=== PATIENT | male | born 1980 | race Caucasian/White ===

== ENCOUNTER 2018-08-09 10:19 | Emergency (ER) | payer SELFPAY ==
[2018-08-09] MEDS ORDERED: IPRATROPIUM/ALBUTEROL 0.5-2.5 MG/3 ML AMPUL NEB ONE (11:05)
[2018-08-09] MEDS ORDERED: PREDNISONE 20 MG TABLET PO ONE (11:05)
--- NOTE | 2018-08-09 11:52 | RADIOLOGY REPORT (SQ) ---
EXAM DESCRIPTION: CHEST 2 VIEWS COMPLETED DATE/TIME: 08/09/2018 11:38 am REASON FOR STUDY: cough, fever COMPARISON: None. EXAM PARAMETERS: NUMBER OF VIEWS: two views TECHNIQUE: Digital Frontal and Lateral radiographic views of the chest acquired. RADIATION DOSE: NA LIMITATIONS: none FINDINGS: LUNGS AND PLEURA: No opacities, masses or pneumothorax. No pleural effusion. MEDIASTINUM AND HILAR STRUCTURES: No masses or contour abnormalities. HEART AND VASCULAR STRUCTURES: Heart normal size. No evidence for failure. BONES: No acute findings. HARDWARE: None in the chest. OTHER: No other significant finding. IMPRESSION: NO ACUTE RADIOGRAPHIC FINDING IN THE CHEST. TECHNICAL DOCUMENTATION: JOB ID: [id number] [employer]- All Rights Reserved Reading location - IP/workstation name: [email or web address]
[2018-08-09 11:55] LABS: A TYPE INFLUENZA AG NEGATIVE (NEGATIVE); B INFLUENZA AG NEGATIVE (NEGATIVE)
--- NOTE | 2018-08-09 12:18 | ER Document Report ---
HPI - HPI Time Seen by Provider: 08/09/18 10:58 Pain Level: 3 Notes: Patient is a 38-year-old male who presents with productive cough and congestion over the last week. Patient reports mild body aches. Unsure if he has had fever although he has had some chills. Patient reports he is otherwise healthy and does not take medications daily. - CONSTITUTIONAL Constitutional: REPORTS: Fever, Chills - EENT EENT: REPORTS: Sore Throat - NEURO Neurology: REPORTS: Headache Past Medical History - General Information source: Patient - Social History Smoking Status: Current Every Day Smoker Chew tobacco use (# tins/day): No Frequency of alcohol use: None Drug Abuse: None Family History: Arthritis, CAD, CVA, DM, Hyperlipidemia, Hypertension, Other - Mother with diverticulitis, polyp remval, and Celiac disease Patient has suicidal ideation: No Patient has homicidal ideation: No Renal/ Medical History: Denies: Hx Peritoneal Dialysis Musculoskeletal Medical History: Reports Hx Arthritis, Reports Hx Musculoskeletal Deformity, Reports Hx Musculoskeletal Trauma Psychiatric Medical History: Reports: Hx Depression Traumatic Medical History: Reports: Hx Pneumothorax Past Surgical History: Reports: Hx Adenoidectomy, Hx Inguinal Hernia, Hx Myringotomy, Hx Nose Surgery, Hx Oral Surgery, Hx Tonsillectomy - Immunizations Immunizations up to date: Yes Hx Diphtheria, Pertussis, Tetanus Vaccination: Yes Vertical Provider Document - CONSTITUTIONAL Notes: PHYSICAL EXAMINATION: GENERAL: Well-appearing, well-nourished and in no acute distress. HEAD: Atraumatic, normocephalic. EYES: Pupils equal round extraocular movements intact, conjunctiva are normal. ENT: Nares patent with clear rhinorrhea. Mild white exudate noted on patient's tonsils and tongue. NECK: Normal range of motion LUNGS: No respiratory distress, lung sounds clear to auscultation bilaterally. Musculoskeletal: Normal range of motion NEUROLOGICAL: Normal speech, normal gait. PSYCH: Normal mood, normal affect. SKIN: Warm, Dry, normal turgor, no rashes or lesions noted. - INFECTION CONTROL TRAVEL OUTSIDE OF THE [place] IN LAST 30 DAYS: No Course - Re-evaluation Re-evalutation: Rapid strep and influenza are negative. Chest x-ray negative for any acute infiltrates. Patient has had increase in the amount of sputum as well as increased purulence. Patient has had fever intermittently over the last week. Will place patient on doxycycline for upper respiratory infection/bronchitis. Throat culture pending. - Vital Signs Vital signs: Temp Pulse Resp BP Pulse Ox 98.3 F 104 H 16 113/82 97 08/09/18 10:31 08/09/18 10:31 08/09/18 10:31 08/09/18 10:31 08/09/18 10:31 Discharge - Discharge Clinical Impression: Bronchitis Condition: Stable Disposition: HOME, SELF-CARE Additional Instructions: Bronchitis with Bronchospasm (Wheezing) You have bronchitis with bronchospasm (wheezing). Sometimes people develop wheezing with a chest cold. This occurs either because of an underlying tendency toward asthma or because the virus itself irritates the bronchial tubes. This irritation causes cough, shortness of breath, and wheezing. Emergency treatment of bronchospasm may include adrenaline shots or bronchodilator aerosol. You may feel lightheaded and have a rapid pulse for an hour or two. Rest and get plenty of fluids. At home, we'll treat you with a bronchodilator inhaler. Corticosteroids may be required for some patients. Until you recover, avoid chemical fumes, dusts, pollens, and exercising in very cold or dry air. If you smoke, stop now! Most cases of bronchitis get better without antibiotics. We prescribe antibiotics when we believe bacteria are damaging your airways, or if there's high risk the bronchitis will worsen into pneumonia. Increase your fluid intake. A cool mist humidifier may make your lungs more comfortable. An expectorant (cough medicine that loosens phlegm) can help. Repeated episodes of bronchitis and bronchospasm may result in lung damage -- for example, chronic bronchitis, recurrent pneumonias, or emphysema. If you develop a fever, increased wheezing, chest pain, or severe shortness of breath, you should contact the doctor immediately. Prescriptions: Doxycycline Hyclate 100 mg PO BID #14 capsule Fluticasone Propionate [Flonase Nasal [place] 50 Mcg/[place] 16 gm] 2 sprays NASL Q12 #1 inhaler Prednisone [Deltasone 20 mg Tablet] 3 tab PO DAILY 5 Days #15 tablet
[2018-08-09 12:32] VITALS: BP 140/98
== END 2018-08-09 12:33 | disposition home or self-care (01) ==
LOC: ER 10:19
DX: J40 Bronchitis, not specified as acute or chronic (principal); R05 Cough; J02.9 Acute pharyngitis, unspecified; J34.89 Other specified disorders of nose and nasal sinuses; R51 Headache; F17.200 Nicotine dependence, unspecified, uncomplicated
CPT/HCPCS: 94640; 99283; 87070; 87880; 87804; 71046; J7512; J7620

== ENCOUNTER 2018-11-26 19:54 | Emergency (ER) | payer SELFPAY ==
[2018-11-26] MEDS ORDERED: ONDANSETRON 4 MG TAB.RAPDIS PO PRN (20:54)
[2018-11-26] MEDS ORDERED: IBUPROFEN 800 MG TABLET PO PRN (20:54)
[2018-11-26] MEDS ORDERED: PROMETHAZINE HCL 25 MG TABLET PO PRN (20:54)
[2018-11-26] MEDS ORDERED: NICOTINE 21 MG/24 HR PATCH.TD24 TD ONE (20:54)
--- NOTE | 2018-11-26 20:58 | ER Document Report ---
Addendum entered and electronically signed by TEDDY SALGADO DO 11/28/18 11:30: Discharge - Discharge Clinical Impression: Heroin abuse, Polysubstance abuse, Suicidal ideation, Alcohol abuse, Methadone misuse, Methamphetamine abuse, Cannabis abuse Depression Qualifiers: Depression Type: unspecified Qualified Code(s): F32.9 - Major depressive disorder, single episode, unspecified Condition: Stable Disposition: HOME, SELF-CARE Additional Instructions: You have been evaluated by both medical and behavioral health providers while in the emergency department. You have been cleared from both acute medical and psychiatric services. You have current and history of using multiple substances. Substance abuse, especially opiates, as well as the use of both uppers (methamphetamines) and downers (opiates such as methadone) can cause/increase/exacerbate depressive symptoms. It is felt the best course of treatment is voluntary detoxification from multiple substances where that is the focus and mental health treatment is secondary. Then after detoxification you can choose to do halfway recovery at a place like [facility] (via [facility]) in [place], [place] or Substance Abuse Intensive Outpatient Program (SAIOP) at [facility] located in [facility]. Both options will allow for continued professional support that will address both mental health and substance abuse. NARCOTIC / OPIOD ABUSE: (Methadone) Narcotics and opiods are pain-relieving drugs that are often abused. They are addicting. Narcotics cause euphoria, but it often takes increasing amounts to "feel good" and avoid withdrawal symptoms. Overdose of narcotics causes small pupils, coma, and decreased breathing. It's a common cause of . Purity of street narcotics is unpredictable. Injection of narcotics is risky for abscesses, endocarditis (heart infection), pneumonia, and AIDS. Withdrawal from narcotics causes goose bumps, watery mouth, sweating, nasal congestion, muscle aches, abdominal cramps, vomiting, and diarrhea. There's often restlessness and confusion. Treatment programs are available, but you must make the decision to quit. Medication (such as clonidine) can be prescribed to control the symptoms of withdrawal. AMPHETAMINE / METHAMPHETAMINE ABUSE: Amphetamines are addicting stimulants. Amphetamines overstimulate the nervous system and give a false feeling of power and mastery. These drugs may be obtained as prescription pills for weight loss, narcolepsy, or attention-deficit disorder. More often they're bought as an illegal street drug, methamphetamine (crank, crystal, speed). Using amphetamines repeatedly can lead to serious medical problems includi ng malnutrition, severe depression, and paranoia. It can take increasing amounts to feel good. Eventually, there will be a "burn out." When you go off amphetamines there is a period of depression that may last for weeks or even months. High doses of amphetamines can cause seizures, confusion, hallucinations, delusions, high blood pressure, muscle damage, heart damage, or sudden . Many times these deadly complications occur even with "normal" doses. Injection of amphetamines is risky for developing abscesses, endocarditis (heart infection), pneumonia, and AIDS. Withdrawal from amphetamines often causes anxiety, depression, and drug cravings. Some users become paranoid and psychotic. There may be cramps, nausea, and vomiting. Many treatment programs are available, but you must make the decision to quit. Medication can be prescribed to control the symptoms of amphetamine toxicity (beta blockers or benzodiazepines). Withdrawal symptoms may require tranquilizers. DEPRESSION: Your evaluation reveals that you have mental depression. While symptoms may be vague, they often include disturbance of sleep, fatigue, loss of appetite, and general loss of interest in life. While depression may be a side effect of drugs, or a reaction to a major change in your life, many cases have no known cause. If depression is acute, and related to a major loss in your life, you can expect it to clear completely with time. If you have been depressed a long time, are prone to repeated bouts of depression or low mood, or have been thinking of suicide, get help. Depression can be treated with anti-depressant medication and counselling. Long-term depression will often take a few weeks to clear, even with appropriate medication. Follow-up care is important. SUICIDAL IDEATION: Suicidal ideation is a common medical term for thoughts about suicide, which may be as detailed as a formulated plan, without the suicidal act itself. Although most people who undergo suicidal ideation do not commit suicide, some go on to make suicide attempts. The range of suicidal ideation varies greatly from fleeting to detailed planning, role playing, and unsuccessful attempts. While thoughts about suicide are common, most people do not carry out seri ous actions to commit suicide. Based upon your evaluation and discussion with you, we do not believe you are currently at risk to act upon your thoughts of suicide. You have agreed to return to the Emergency Department, at any time, if you feel inclined to act upon your suicidal thoughts. FOLLOW-UP CARE: You have been instructed to call [facility] ([facility]) at discharge, they will meet you in the Emergencu Department (ED) lobby, they will assist with voluntary detoxification placement. You have been provided the outpatient mental health resource sheet which highlighted [facility] contact information. You have been provided with prescriptions for Effexor 37.5MG daily for depression and to curb cravings for substances, as well as Buspar 10MG at night for anxiety/depression/sleep. You should take these as directed if unable to get a dotification bed immediately. If you experience worsening or a significant change in your symptoms, notify the physician immediately, utilize mobile crisis or return to the Emergency Department at any time for re-evaluation. Prescriptions: Buspirone HCl [Buspar 10 mg Tablet] 10 mg PO QHS #14 tablet Venlafaxine HCl ER [Effexor Xr 37.5 mg Cap.sr] 37.5 mg PO DAILY #14 cap.[id number] Referrals: [facility] [Outside] - 11/28/18 12:00 pm Addendum entered and electronically signed by BAIRON TYSON LPC 11/28/18 11:28: Discharge - Discharge Clinical Impression: Heroin abuse, Polysubstance abuse, Suicidal ideation, Alcohol abuse, Methadone misuse, Methamphetamine abuse, Cannabis abuse, Depression Condition: Stable Disposition: HOME, SELF-CARE Additional Instructions: You have been evaluated by both medical and behavioral health providers while in the emergency department. You have been cleared from both acute medical and psychiatric services. You have current and history of using multiple substances. Substance abuse, especially opiates, as well as the use of both uppers (methamphetamines) and downers (opiates such as methadone) can cause/increase/exacerbate depressive symptoms. It is felt the best course of treatment is voluntary detoxification from multiple substances where that is the focus and mental health treatment is secondary. Then after detoxification you can choose to do long chain beamer recovery at a place like [facility] (via [facility]) in [place], [place] or Substance Abuse Intensive Outpatient Program (SAIOP) at [facility] located in [facility]. Both options will allow for continued professional support that will address both mental health and substance abuse. NARCOTIC / OPIOD ABUSE: (Methadone) Narcotics and opiods are pain-relieving drugs that are often abused. They are addicting. Narcotics cause euphoria, but it often takes increasing amounts to "feel good" and avoid withdrawal symptoms. Overdose of narcotics causes small pupils, coma, and decreased breathing. It's a common cause of . Purity of street narcotics is unpredictable. Injection of narcotics is risky for abscesses, endocarditis (heart infection), pneumonia, and AIDS. Withdrawal from narcotics causes goose bumps, watery mouth, sweating, nasal congestion, muscle aches, abdominal cramps, vomiting, and diarrhea. There's often restlessness and confusion. Treatment programs are available, but you must make the decision to quit. Medication (such as clonidine) can be prescribed to control the symptoms of withdrawal. AMPHETAMINE / METHAMPHETAMINE ABUSE: Amphetamines are addicting stimulants. Amphetamines overstimulate the nervous system and give a false feeling of power and mastery. These drugs may be obtained as prescription pills for weight loss, narcolepsy, or attention- deficit disorder. More often they're bought as an illegal street drug, methamphetamine (crank, crystal, speed). Using amphetamines repeatedly can lead to serious medical problems including malnutrition, severe depression, and paranoia. It can take increasing amounts to feel good. Eventually, there will be a "burn out." When you go off amphetamines there is a period of depression that may last for weeks or even months. High doses of amphetamines can cause seizures, confusion, hallucinations, delusions, high blood pressure, muscle damage, heart damage, or sudden . Many times these deadly complications occur even with "normal" doses. Injection of amphetamines is risky for developing abscesses, endocarditis (heart infection), pneumonia, and AIDS. Withdrawal from amphetamines often causes anxiety, depression, and drug cravings. Some users become paranoid and psychotic. There may be cramps, nausea, and vomiting. Many treatment programs are available, but you must make the decision to quit. Medication can be prescribed to control the symptoms of amphetamine toxicity (beta blockers or benzodiazepines). Withdrawal symptoms may require tranquilizers. DEPRESSION: Your evaluation reveals that you have mental depression. While symptoms may be vague, they often include disturbance of sleep, fatigue, loss of appetite, and general loss of interest in life. While depression may be a side effect of drugs, or a reaction to a major change in your life, many cases have no known cause. If depression is acute, and related to a major loss in your life, you can expect it to clear completely with time. If you have been depressed a long time, are prone to repeated bouts of depression or low mood, or have been thinking of suicide, get help. Depression can be treated with anti-depressant medication and counselling. Long-term depression will often take a few weeks to clear, even with appropriate medication. Follow-up care is important. SUICIDAL IDEATION: Suicidal ideation is a common medical term for thoughts about suicide, which may be as detailed as a formulated plan, without the suicidal act itself. Although most people who undergo suicidal ideation do not commit suicide, some go on to make suicide attempts. The range of suicidal ideation varies greatly from fleeting to detailed planning, role playing, and unsuccessful attempts. While thoughts about suicide are common, most people do not carry out serious actions to commit suicide. Based upon your evaluation and discussion with you, we do not believe you are currently at risk to act upon your thoughts of suicide. You have agreed to return to the Emergency Department, at any time, if you feel inclined to act upon your suicidal thoughts. FOLLOW-UP CARE: You have been instructed to call [facility] ([facility]) at discharge, they will meet you in the Emergencu Department (ED) lobby, they will assist with voluntary detoxification placement. You have been provided the outpatient mental health resource sheet which highlighted [facility] contact information. You have been provided with prescriptions for Effexor 37.5MG daily for depression and to curb cravings for substances, as well as Buspar 10MG at night for anxiety/depression/sleep. You should take these as directed if unable to get a dotification bed immediately. If you experience worsening or a significant change in your symptoms, notify the physician immediately, utilize mobile crisis or return to the Emergency Department at any time for re-evaluation. Referrals: [facility] [Outside] - 11/28/18 12:00 pm Addendum entered and electronically signed by BAIRON TYSON LPC 11/28/18 11:21: Discharge - Discharge Clinical Impression: Heroin abuse, Polysubstance abuse, Suicidal ideation, Alcohol abuse, Methadone misuse, Methamphetamine abuse, Cannabis abuse, Depression Condition: Stable Disposition: HOME, SELF-CARE Additional Instructions: NARCOTIC / OPIOD ABUSE: (Methadone) Narcotics and opiods are pain-relieving drugs that are often abused. They are addicting. Narcotics cause euphoria, but it often takes increasing amounts to "feel good" and avoid withdrawal symptoms. Overdose of narcotics causes small pupils, coma, and decreased breathing. It's a common cause of . Purity of street narcotics is unpredictable. Injection of narcotics is risky for abscesses, endocarditis (heart infection), pneumonia, and AIDS. Withdrawal from narcotics causes goose bumps, watery mouth, sweating, nasal congestion, muscle aches, abdominal cramps, vomiting, and diarrhea. There's often restlessness and confusion. Treatment programs are available, but you must make the decision to quit. Medication (such as clonidine) can be prescribed to control the symptoms of withdrawal. AMPHETAMINE / METHAMPHETAMINE ABUSE: Amphetamines are addicting stimulants. Amphetamines overstimulate the nervous system and give a false feeling of power and mastery. These drugs may be obtained as prescription pills for weight loss, narcolepsy, or attention- deficit disorder. More often they're bought as an illegal street drug, methamphetamine (crank, crystal, speed). Using amphetamines repeatedly can lead to serious medical problems including malnutrition, severe depression, and paranoia. It can take increasing amounts to feel good. Eventually, there will be a "burn out." When you go off amphetamines there is a period of depression that may last for weeks or even months. High doses of amphetamines can cause seizures, confusion, hallucinations, delusions, high blood pressure, muscle damage, heart damage, or sudden . Many times these deadly complications occur even with "normal" doses. Injection of amphetamines is risky for developing abscesses, endocarditis (heart infection), pneumonia, and AIDS. Withdrawal from amphetamines often causes anxiety, depression, and drug cravings. Some users become paranoid and psychotic. There may be cramps, nausea, and vomiting. Many treatment programs are available, but you must make the decision to quit. Medication can be prescribed to control the symptoms of amphetamine toxicity (beta blockers or benzodiazepines). Withdrawal symptoms may require tranquilizers. DEPRESSION: Your evaluation reveals that you have mental depression. While symptoms may be vague, they often include disturbance of sleep, fatigue, loss of appetite, and general loss of interest in life. While depression may be a side effect of drugs, or a reaction to a major change in your life, many cases have no known cause. If depression is acute, and related to a major loss in your life, you can expect it to clear completely with time. If you have been depressed a long time, are prone to repeated bouts of depression or low mood, or have been thi nking of suicide, get help. Depression can be treated with anti-depressant medication and counselling. Long-term depression will often take a few weeks to clear, even with appropriate medication. Follow-up care is important. SUICIDAL IDEATION: Suicidal ideation is a common medical term for thoughts about suicide, which may be as detailed as a formulated plan, without the suicidal act itself. Although most people who undergo suicidal ideation do not commit suicide, some go on to make suicide attempts. The range of suicidal ideation varies greatly from fleeting to detailed planning, role playing, and unsuccessful attempts. While thoughts about suicide are common, most people do not carry out serious actions to commit suicide. Based upon your evaluation and discussion with you, we do not believe you are currently at risk to act upon your thoughts of suicide. You have agreed to return to the Emergency Department, at any time, if you feel inclined to act upon your suicidal thoughts. FOLLOW-UP CARE: You have been instructed to call [facility] ([facility]) at discharge, they will meet you in the Emergencu Department (ED) lobby, they will assist with voluntary detoxification placement. You have been provided the outpatient mental health resource sheet which highlighted [facility] contact information. If you experience worsening or a significant change in your symptoms, notify the physician immediately, utilize mobile crisis or return to the Emergency Department at any time for re-evaluation. Referrals: [facility] [Outside] - 11/28/18 12:00 pm Original Note: ED General - General Chief Complaint: Suicidal Ideation Stated Complaint: PSYCH EVAL Time Seen by Provider: 11/26/18 20:33 Notes: 38-year-old male presents emergency department complaining of suicidal ideation. States that he is tried several times over the past several days to overdose on heroin and methamphetamine but has not yet succeeded in dying. Came to the emergency department asking to be involuntarily committed so that he cannot leave and try again. Patient has an extensive past history of hospitalizations for suicidal ideation and suicide attempts. Not currently undergoing therapy or medication treatment with any psychiatrist or psychologist. Admits to using multiple recreational drugs and states he has a history of withdrawal from both heroin and alcohol. TRAVEL OUTSIDE OF THE [place] IN LAST 30 DAYS: No - Related Data Allergies/Adverse Reactions: Penicillins Allergy (Verified 08/09/18 10:22) Past Medical History - General Information source: Patient - Social History Smoking Status: Current Every Day Smoker Frequency of alcohol use: Heavy Drug Abuse: Heroin, Marijuana, Methamphetamine, Other - "Anything else I can get my hands on" Family History: Arthritis, CAD, CVA, DM, Hyperlipidemia, Hypertension, Other - Mother with diverticulitis, polyp remval, and Celiac disease Patient has suicidal ideation: Yes Patient has homicidal ideation: No Renal/ Medical History: Denies: Hx Peritoneal Dialysis Musculoskeletal Medical History: Reports Hx Arthritis, Reports Hx Musculoskeletal Deformity, Reports Hx Musculoskeletal Trauma Psychiatric Medical History: Reports: Hx Depression Traumatic Medical History: Reports: Hx Pneumothorax Past Surgical History: Reports: Hx Adenoidectomy, Hx Inguinal Hernia, Hx Myr ingotomy, Hx Nose Surgery, Hx Oral Surgery, Hx Tonsillectomy - Immunizations Immunizations up to date: Yes Hx Diphtheria, Pertussis, Tetanus Vaccination: Yes Review of Systems - Review of Systems Constitutional: No symptoms reported Gastrointestinal: Abdominal pain - Intermittent abdominal cramping.. denies: Diarrhea, Nausea, Vomiting Neurological/Psychological: See HPI -: Yes All other systems reviewed and negative Physical Exam - Vital signs Vitals: Temp Pulse Resp BP Pulse Ox 98.1 F 104 H 20 121/74 97 11/26/18 20:02 11/26/18 20:02 11/26/18 20:02 11/26/18 20:02 11/26/18 20:02 - Notes Notes: GENERAL: Alert, interacts well. No acute distress. HEAD: Normocephalic, atraumatic EYES: Pupils equal, round and reactive to light, extraocular movements intact. ENT: Oral mucosa moist, tongue midline. NECK: Full range of motion, supple, trachea midline. LUNGS: Clear to auscultation bilaterally, no wheezes, rales or rhonchi, no respiratory distress. HEART: Regular rate and rhythm, no murmurs, gallops, rubs. ABDOMEN: Soft, nontender, nondistended, bowel sounds present in all 4 quadrants. EXTREMITIES: Moves all 4 extremities spontaneously, no edema, radial and dorsalis pedis pulses 2/4 bilaterally. No cyanosis. NEUROLOGICAL: Alert and oriented x3, normal speech, biceps and patellar DTRs 2+ bilaterally. PSYCH: Normal mood, normal affect. SKIN: Warm, Dry, normal turgor, track joseph on his arms and legs, no signs of active infection, occasional ecchymoses noted over veins, no fluctuance, no evidence of abscess.. Course - Re-evaluation Re-evalutation: 11/27/18 03:47 CBC unremarkable, CMP grossly unremarkable, only slightly elevated BUN, AST ALT alk phos normal, urinalysis shows trace ketones otherwise unremarkable, patient drinking without difficulty, salicylates are 4.3, acetaminophen is undetectable, urine drug screen shows methadone and marijuana, alcohol level is undetectable, EKG is nonischemic. Patient will have see was protocol performed on a regular basis, patient is Akash had medication ordered on a as needed basis for signs of narcotic withdrawal including ibuprofen, Zofran, Bentyl. Patient has been given a nicotine patch. Patient has been placed on 24-hour hold papers and will be seen by psychology in the morning. Patient did already have some ta chycardia and hypertension so he was started on clonidine including a patch. Patient has been doing well since then. - Vital Signs Vital signs: Temp Pulse Resp BP Pulse Ox 98.1 F 90 20 116/62 100 11/26/18 20:02 11/27/18 00:03 11/27/18 00:03 11/27/18 00:03 11/27/18 00:03 - Laboratory Result Diagrams: 11/26/18 21:06 11/26/18 21:06 Laboratory results interpreted by me: 11/26/18 11/26/18 21:06 21:06 BUN 23 H Total Protein 6.2 L Urine Protein 30 H Urine Ketones TRACE H Acetaminophen < 10 L - EKG Interpretation by Me Additional EKG results interpreted by me: 11/27/18 03:48 EKG shows sinus rhythm at a rate of 93, normal axis, normal intervals, no ST segment elevations or depressions, no T wave inversions per my interpretation. Discharge - Discharge Clinical Impression: Heroin abuse, Polysubstance abuse, Suicidal ideation, Alcohol abuse Condition: Stable Disposition: PSYCH HOSP/UNIT
[2018-11-26 21:22] LABS: ABSOLUTE EOSINOPHILS # (AUTO) 0.1 10^3/uL (0.0-0.6); ABSOLUTE LYMPHOCYTES (AUTO) 2.2 10^3/uL (0.5-4.7); ABSOLUTE MONOCYTES (AUTO) 0.6 10^3/uL (0.1-1.4); ABSOLUTE NEUT (AUTO) 3.7 10^3/uL (1.7-8.2); BASOPHILS % (AUTO) 0.4 % (0-2); EOSINOPHILS % (AUTO) 1.6 % (0-6); HEMATOCRIT 44.4 % (37.9-51.0); LYMPHOCYTES % (AUTO) 33.9 % (13-45); MEAN CORPUSCULAR HEMOGLOBIN 29.1 pg (27.0-33.4); MEAN CORPUSCULAR HGB CONC 33.7 g/dL (32.0-36.0); MEAN CORPUSCULAR VOLUME 86 fl (80-97); MONOCYTES % (AUTO) 8.4 % (3-13); PLATELET COUNT 239 10^3/uL (150-450); RED BLOOD COUNT 5.14 10^6/uL (4.35-5.55); RED CELL DISTRIBUTION WIDTH 13.7 % (11.5-14.0); SEGMENTED NEUTROPHILS % (AUTO) 55.7 % (42-78); TOTAL CELLS COUNTED % (AUTO) 100 %; WHITE BLOOD COUNT 6.6 10^3/uL (4.0-10.5)
[2018-11-26] MEDS: DICYCLOMINE HCL 20 MG TABLET PO PRN (21:32)
[2018-11-26 21:41] LABS: APPEARANCE,URINE CLOUDY; BILIRUBIN,URINE NEGATIVE (NEGATIVE); COLOR,URINE DARK YELLOW; GLUCOSE, URINE NEGATIVE (NEGATIVE); KETONES,URINE TRACE mg/dL (NEGATIVE); LEUKOCYTE ESTERASE,URINE NEGATIVE (NEGATIVE); NITRITE,URINE NEGATIVE (NEGATIVE); PROTEIN,URINE 30 mg/dL (NEGATIVE); URINE SPECIFIC GRAVITY 1.031; UROBILINOGEN,URINE NEGATIVE mg/dL (<2.0)
[2018-11-26 21:47] LABS: ACETAMINOPHEN < 10 ug/mL (10-30); ALANINE AMINOTRANSFERASE 36 U/L (21-72); ALBUMIN 3.8 g/dL (3.5-5.0); ALCOHOL < 10 mg/dL (NONE DETECTED); ALKALINE PHOSPHATASE 57 U/L (38-126); ANION GAP 9 (5-19); ASPARTATE AMINO TRANSFERASE 25 U/L (17-59); BILIRUBIN,DIRECT 0.2 mg/dL (0.0-0.4); BILIRUBIN,TOTAL 0.4 mg/dL (0.2-1.3); BLOOD UREA NITROGEN 23 mg/dL (7-20); CARBON DIOXIDE 28 mmol/L (22-30); CHLORIDE 101 mmol/L (98-107); GLUCOSE 96 mg/dL (75-110); POTASSIUM 3.9 mmol/L (3.6-5.0); SALICYLATE 4.3 mg/dL (2.0-20.0); SODIUM 138.4 mmol/L (137-145); TOTAL PROTEIN 6.2 g/dL (6.3-8.2)
[2018-11-26 21:55] LABS: URINE BARBITURATES SCREEN NEGATIVE; URINE BENZODIAZEPINES SCREEN NEGATIVE; URINE COCAINE SCREEN NEGATIVE; URINE MARIJUANA (THC) SCREEN UNCONFIRMED POSITIVE; URINE PHENCYCLIDINE SCREEN NEGATIVE
[2018-11-26 22:11] LABS: URINE METHADONE SCREEN UNCONFIRMED POSITIVE
[2018-11-26] MEDS ORDERED: CLONIDINE 0.1 MG/24 HR PATCH.TDWK TD ONE (23:55)
[2018-11-26] MEDS ORDERED: CLONIDINE HCL 0.1 MG TABLET PO ONE (23:55)
--- NOTE | 2018-11-27 09:12 | ER Document Report ---
Doctor's Note Notes: 11/27/18 09:12 HPI from 11/26/2018 :38-year-old male presents emergency department complaining of suicidal ideation. States that he is tried several times over the past several days to overdose on heroin and methamphetamine but has not yet succeeded in dying. Came to the emergency department asking to be involuntarily committed so that he cannot leave and try again. Patient has an extensive past history of hospitalizations for suicidal ideation and suicide attempts. Not currently undergoing therapy or medication treatment with any psychiatrist or psychologist. Admits to using multiple recreational drugs and states he has a history of withdrawal from both heroin and alcohol. As the rounding physician this AM, I assessed the patient's labs, vitals, and records. No concerning findings this morning. Patient denies any acute complaints. Patient [facility]. 11/27/18 20:26 We did attempt to admit the patient to the [facility] which is a rehabilitation facility but they admission due to concerns of severe withdrawal symptoms Patient remains adamant that he will kill himself if discharged. [facility] has been working on disposition for this patient for several hours. We will continue to monitor. PHYSICAL EXAMINATION: GENERAL: Well-appearing, well-nourished and in no acute distress. HEAD: Atraumatic, normocephalic. EYES: Pupils equal round extraocular movements intact, conjunctiva are normal. ENT: Nares patent NECK: Normal range of motion LUNGS: No respiratory distress Musculoskeletal: Normal range of motion NEUROLOGICAL: Normal speech, normal gait. PSYCH: Admits to suicidal ideation. SKIN: Warm, Dry, normal turgor, no rashes or lesions noted.
[2018-11-27] MEDS: DICYCLOMINE HCL 20 MG TABLET PO PRN (11:07)
--- NOTE | 2018-11-27 11:12 | EKG REPORT ---
SEVERITY:- NORMAL ECG - SINUS RHYTHM : Confirmed by: Luther Jorgensen 27-Nov-2018 11:11:35
--- NOTE | 2018-11-28 10:27 | PSYCHOLOGICAL NOTE ---
Psych Note - Psych Note Date seen by psych provider: 11/28/18 Time seen by psych provider: 08:08 - Re evaluation from [id number]. Spoke to mother via telephone. Cooridnated [facility] linkage with Meggan at call center and then Tushar who came to conduct assessment with patient in ED [facility]. Psych Note: Reason for Consult: 1st Re Evaluation, 24 Hour IVC Petition from 11/26/18 so has , been trying to OD on Heroin and Meth for past several days, history polysubstance and Depression Contact Permissions: Mother Merlyn/listed as EC, number listed on face sheet is not correct, patient had correct number Patient is a 38 year old male who is in the ED on an overnight MH hold (was on a 24 Hour IVC Petition 11/26/18) for trying to OD on Heoin and Meth the past several days with history of Polysubstance use and Depression. He stated "doing a little better, I feel a little better" when asked how he was feeling. I stated "I want to go someplace." He denied being prescribed Methadone. He admitted to previous and inpatient treatment. He identified he had been to the [facility] previously. He reported last year he was hospitalized at [facility] and has been to [facility] (detox part only) in the past. He acknowledged he "shot up 3-4 times in a row, had other plans like walking out in front of a car, didn't matter, anything, I have to get help, seems the easiest way to go would be to OD" when asked about thoughts to hurt/harm/kill self. When asked about current SI he said "if y'all let me out of here yeah." He noted depression and said he is not currently on medication, should be and was previously on Zoloft, Prozac, Citalopram, Strattera. He identified "when I am not on an antidepressant that is when I use drugs." He stated his mother and roommate reside in [facility] [facility] and commented "I can't go back there, [address], there is too much access, I have no place to go." He was made aware that just because he has no place to go does not mean he should go inpatient psych and he said "lady I have no place to go, if I am on the streets I will use, I want help with the substance use but I also have depression." UDS was positive for Methadone, Methamphetamine and Cannabis. Patient was alert and oriented to self, person, place, time and situation. Mood was depressed with irritable affect (not could be from coming down and withdrawal). He endorsed SI by saying "if ya'll let me out of here year, I want help, I have no place to go." He denied HI. He did not appear to be responding to internal stimuli as evidenced by fair eye contact, answering questions appropriately when addressed, staying on topic and carrying on dialogue conversation. Thought processes were linear and organized, as well as forward due to wanting help. Conversational speech was within normal limits for rate, tone and prosody. Intellectual abilities are estimated to be average. Insight, judgment and impulse control were fair as evidenced by recognizing he has a problem and wanting help. Also he was able to contact mother and roommate to coordinate plan. Chart review revealed patient was seen August 2015 by [facility] for OD of Tramadol and Prozac, he had said he was depressed about life in general, sometimes didn't want to get out of bed, had 27 jobs in his 35 years of life and had no life successes. He also noted then an OD in 2009 which resulted in 21 day detox and he remained sober for a year after. He had admitted to a long history of drug use, anything he could get his hands on, got hooked on pain medication (Percocet, Oxycontin). Mother had provided the following information at that time: patient has a history of aggression, drug use, legal problems (at that time was on Probation for viewing child pornography on the internet), has seen MH Provider Dr. Hutchins who considered Mild ASD and ADHD, patient had been morn 3 months premature. She stated that prior to the Aug 2015 visit he had been spacey and having rages for 2 weeks and she found him paranoid/could hardly speak. Attempted to call patient's mother using face sheet information but not accurate number. Patient called his mother from [facility] station and passed the phone to this clinician. She stated she does reside in [facility] but he was not able to return. She noted "this has been going on for years, he is now shooting up and has been saying he is going to kill himself." She stated they have found things like railroad car checker knives. She stated he needs treatment and it does start with the addiction. She stated the only other option is patient's roommate if he will allow patient there for a couple days. She was made aware of plan of care (link [facility] to [facility] at discharge so they can assist with voluntary detox placement which could take a couple days). Patient called roommate, Graham, from nurses station. This clinician present for call. Roommate made aware of plan of care by patient and agreed to allow him to stay a couple days while waiting on detox bed availability. This clinician called the [facility] call center number (spoke to Meggan) to initiate the linkage and then passed phone over to patient. This was all done at the nurses station. Clinician present while patient provided call center information. Call back number was [facility] office since patient did not have a cell phone. Meggan called to verify the number. At 1232 Tushar with [facility] called saying he was in [place] and would be to the [facility] ED in 20 minutes. Went to [facility] where patient agreed to wait, he was still there and informed him of time frame. He used wall phone in [facility] to call 2 people (family member, mother) about a ride to roommates house since he was made aware [facility] could not since he is the only worker on. Patient told mother the [facility] worker was on the way and remained on the phone with her for some time. She agreed to provide transportation when this clinician was still present with patient. At 1441 Tushar came to the [facility] Office after meeting with patient. Diagnosis: Polysubstance Use 304.00 (F11.20) Opioid Use Disorder, Severe 304.40 (F15.20) Methamphetamine Use Disorder, Severe 304.30 (F12.20) Cannabis Use Disorder, Severe 311 (F32.9) Unspecified Depressive Disorder Medication recommendations made by the psychiatric medical provider, Dr. Aris MD., includes: Provide 5 day prescription (in the event patient does not get detox bed immediat catrachito due to none available) Add Effexor 37.5MG daily for depression/to curb cravings/increase energy Add Buspar 10MG at night for anxiety/calming effect/depression/sleep Impression/Plan: Patient is cleared from acute psychiatric services. When asked about current SI he said "if ya'll let me out of here yeah," and had said he feels a little better today but wants to go someplace. He denied HI and no observed psychosis. He also said he has no place to go (mother resides in [facility], said he cannot go back there, commented there is access to so much there). He denied being prescribed methadone. He admitted to using substances and feeling depressed. He contacted his mother and roommate at nurses station prior to discharge. He allowed this clinician to speak with mother and made her aware of plan of care. He contacted his roommate Graham who agreed to let him stay a day or two in case a detox bed was not available right away. Patient linked directly to [facility], this clinician assisted by making initial call to [facility] (Meggan at call center) from nurses station and then passed phone over to patient, they will meet him in ED lobby and they can assist with voluntary detox place ment (Tushar met with patient). Provided patient with the outpatient MH resource sheet which highlighted [facility] for voluntary detox/crisis/talk therapy/linkage to other supports/services, highlighted [facility] for SAIOP and MH after detox and documented [facility] via [employer] (included contact number) for reimbursement specialist recovery. Consulted with Dr. Dunaway regarding the management and care of patient. ED Physician in agreement with recommendations.
--- NOTE | 2018-11-28 11:29 | ER Document Report ---
Doctor's Note Notes: 11/28/18 11:28 11/27/18 09:12 HPI from 11/26/2018 :38-year-old male presents emergency department complaining of suicidal ideation. States that he is tried several times over the past several days to overdose on heroin and methamphetamine but has not yet succeeded in dying. Came to the emergency department asking to be involuntarily committed so that he cannot leave and try again. Patient has an extensive past history of hospitalizations for suicidal ideation and suicide attempts. Not currently undergoing therapy or medication treatment with any psychiatrist or psychologist. Admits to using multiple recreational drugs and states he has a history of withdrawal from both heroin and alcohol. As the rounding physician this AM, I assessed the patient's labs, vitals, and records. No concerning findings this morning. Patient denies any acute complaints. [facility]. 11/27/18 20:26 We did attempt to admit the patient to the [facility] which is a rehabilitation facility but they admission due to concerns of severe withdrawal symptoms Patient remains adamant that he will kill himself if discharged. [facility] has been working on disposition for this patient for [address] Dunaway patient will be discharged home and mobile crisis will be called to from the hospital. GENERAL: Well-appearing, well-nourished and in no acute distress. HEAD: Atraumatic, normocephalic. EYES: Pupils equal round extraocular movements intact, conjunctiva are normal. ENT: Nares patent NECK: Normal range of motion LUNGS: No respiratory distress Musculoskeletal: Normal range of motion NEUROLOGICAL: Normal speech, normal gait. PSYCH: Admits to suicidal ideation. SKIN: Warm, Dry, normal turgor, no rashes or lesions noted. Recommendations for medications include Effexor 37.5 mg daily and BuSpar 10 mg at night.
[2018-11-28 11:37] VITALS: BP 121/74
== END 2018-11-28 11:55 | disposition home or self-care (01) ==
LOC: ER 19:54
DX: F11.10 Opioid abuse, uncomplicated (principal); F10.10 Alcohol abuse, uncomplicated; F15.10 Other stimulant abuse, uncomplicated; F12.10 Cannabis abuse, uncomplicated; F32.9 Major depressive disorder, single episode, unspecified; R45.851 Suicidal ideations; Z88.0 Allergy status to penicillin; F17.200 Nicotine dependence, unspecified, uncomplicated
CPT/HCPCS: 93005; 99285; 36415; 80307 ×4; 85025; 80053; 81001; 93010; J3490 ×3; S0119

== ENCOUNTER 2018-12-29 22:40 | Emergency (ER) | payer SELFPAY ==
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
[2018-12-29 23:21] LABS: ABSOLUTE EOSINOPHILS # (AUTO) 0.1 10^3/uL (0.0-0.6); ABSOLUTE LYMPHOCYTES (AUTO) 2.2 10^3/uL (0.5-4.7); ABSOLUTE MONOCYTES (AUTO) 0.8 10^3/uL (0.1-1.4); ABSOLUTE NEUT (AUTO) 5.6 10^3/uL (1.7-8.2); BASOPHILS % (AUTO) 0.5 % (0-2); EOSINOPHILS % (AUTO) 0.8 % (0-6); HEMATOCRIT 47.1 % (37.9-51.0); HEMOGLOBIN 16.1 g/dL (13.5-17.0); LYMPHOCYTES % (AUTO) 24.6 % (13-45); MEAN CORPUSCULAR HEMOGLOBIN 29.7 pg (27.0-33.4); MEAN CORPUSCULAR HGB CONC 34.2 g/dL (32.0-36.0); MEAN CORPUSCULAR VOLUME 87 fl (80-97); MONOCYTES % (AUTO) 9.6 % (3-13); PLATELET COUNT 206 10^3/uL (150-450); RED BLOOD COUNT 5.43 10^6/uL (4.35-5.55); RED CELL DISTRIBUTION WIDTH 14.3 % (11.5-14.0); SEGMENTED NEUTROPHILS % (AUTO) 64.5 % (42-78); TOTAL CELLS COUNTED % (AUTO) 100 %; WHITE BLOOD COUNT 8.8 10^3/uL (4.0-10.5)
[2018-12-29 23:39] LABS: ALANINE AMINOTRANSFERASE 32 U/L (21-72); ALBUMIN 4.1 g/dL (3.5-5.0); ALCOHOL < 10 mg/dL (NONE DETECTED); ALKALINE PHOSPHATASE 61 U/L (38-126); ANION GAP 9 (5-19); ASPARTATE AMINO TRANSFERASE 21 U/L (17-59); BILIRUBIN,DIRECT 0.2 mg/dL (0.0-0.4); BILIRUBIN,TOTAL 0.2 mg/dL (0.2-1.3); BLOOD UREA NITROGEN 14 mg/dL (7-20); CALCIUM 9.3 mg/dL (8.4-10.2); CARBON DIOXIDE 24 mmol/L (22-30); CHLORIDE 105 mmol/L (98-107); GLUCOSE 81 mg/dL (75-110); TOTAL PROTEIN 6.5 g/dL (6.3-8.2)
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
[2018-12-30 01:14] LABS: APPEARANCE,URINE SLIGHTLY-CLOUDY; BILIRUBIN,URINE NEGATIVE (NEGATIVE); COLOR,URINE YELLOW; GLUCOSE, URINE NEGATIVE (NEGATIVE); KETONES,URINE NEGATIVE (NEGATIVE); LEUKOCYTE ESTERASE,URINE NEGATIVE (NEGATIVE); NITRITE,URINE NEGATIVE (NEGATIVE); PROTEIN,URINE NEGATIVE (NEGATIVE); URINE SPECIFIC GRAVITY 1.025; UROBILINOGEN,URINE NEGATIVE mg/dL (<2.0)
[2018-12-30 02:22] LABS: URINE BENZODIAZEPINES SCREEN NEGATIVE; URINE COCAINE SCREEN NEGATIVE; URINE MARIJUANA (THC) SCREEN NEGATIVE; URINE PHENCYCLIDINE SCREEN NEGATIVE
[2018-12-30 07:27] LABS: URINE BARBITURATES SCREEN UNCONFIRMED POSITIVE; URINE METHADONE SCREEN UNCONFIRMED POSITIVE
[2018-12-30 13:04] VITALS: BP 124/72
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
== END 2018-12-30 13:10 | disposition home or self-care (01) ==
LOC: ER 22:40
DX: S02.2XXA Fracture of nasal bones, initial encounter for closed fracture (principal); S30.811A Abrasion of abdominal wall, initial encounter; R51 Headache; Y04.2XXA Assault by strike against or bumped into by another person, initial encounter; R45.851 Suicidal ideations; W17.89XA Other fall from one level to another, initial encounter; F17.210 Nicotine dependence, cigarettes, uncomplicated; Z71.6 Tobacco abuse counseling; Z59.0 Homelessness
CPT/HCPCS: 36415; 70450; 70486; 80053; 80307; 81001; 85025; 99285